=== PATIENT | female | born 1940 | race Caucasian/White ===

== ENCOUNTER 2016-06-04 17:21 | Emergency (ER) | payer MEDICARE, OTHER ==
[~2016-06-04] VITALS: Ht 160 cm; Wt 52.2 kg
[2016-06-04 17:48] VITALS: BP 121/63
== END 2016-06-04 19:21 | disposition home or self-care (01) ==
LOC: ER 17:24
DX: S00.03XA Contusion of scalp, initial encounter (principal); E78.00 Pure hypercholesterolemia, unspecified; J45.909 Unspecified asthma, uncomplicated; G89.29 Other chronic pain; E05.90 Thyrotoxicosis, unspecified without thyrotoxic crisis or storm; M54.2 Cervicalgia; Z88.0 Allergy status to penicillin; Z88.2 Allergy status to sulfonamides; W01.0XXA Fall on same level from slipping, tripping and stumbling without subsequent striking against object, initial encounter; Y93.89 Activity, other specified; Y92.89 Other specified places as the place of occurrence of the external cause; Y99.9 Unspecified external cause status
CPT/HCPCS: 70450; 99284; A4606; Z7610